=== PATIENT | male | born 1985 | race Caucasian/White ===

== ENCOUNTER 2016-09-08 15:58 | Emergency (ER) | payer OTHER ==
--- NOTE | 2016-09-08 16:24 | ERPHSYRPT ---
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 denies loc. c/o rt inner lag pain. abrasion approx 15 cm to rt inner thigh area-bleeding controlled at present. approx 5cm abrasion to lt inner thigh-no bleeding noted. no other injuries Physician History: The patient is a 30-year-old male with his complaining that he fell off a ladder while cutting a branch off a tree today. The branch knocked the ladder out from under him. He has a long abrasion and bruise on his right inner thigh and has a small abrasion and bruise on his left inner thigh. He did not lose consciousness. He did not hit his head. He has no other complaints. His last tetanus vaccination was 15 years ago. He takes no medicines. Occurred: just prior to arrival Reason for Fall: lost balance, fell from height (20 ft) Injuries/Pain Location: lower extremity Loss of Consciousness: no loss of consciousness Quality: throbbing Severity of Pain-Max: moderate Severity of Pain-Current: moderate Modifying Factors: Improves With: nothing Associated Symptoms (Fall): denies symptoms Allergies/Adverse Reactions: No Known Drug Allergies Allergy (Verified 09/08/16 16:09) Home Medications: No Home Meds [facility] UD 09/08/16 [History] Hx Tetanus, Diphtheria Vaccination/Date Given: No Hx Influenza Vaccination/Date Given: No Hx Pneumococcal Vaccination/Date Given: No Immunizations Up to Date: No - Review of Systems Constitutional: No Fever, No Chills Eyes: No Symptoms Ears, Nose, & Throat: No Symptoms Respiratory: No Cough, No Dyspnea Cardiac: No Chest Pain, No Edema, No Syncope Abdominal/Gastrointestinal: No Abdominal Pain, No Nausea, No Vomiting, No Diarrhea Genitourinary Symptoms: No Dysuria Musculoskeletal: Fall, Injury Skin: No Rash Neurological: No Dizziness, No Focal Weakness, No Sensory Changes Psychological: No Symptoms Endocrine: No Symptoms Hematologic/Lymphatic: No Symptoms Immunological/Allergic: No Symptoms All Other Systems: Reviewed and Negative - Past Medical History Pertinent Past Medical History: Yes Neurological History: No Pertinent History ENT History: Other ( sinus infections) Cardiac History: No Pertinent History Respiratory History: No Pertinent History, Tuberculosis Endocrine Medical History: No Pertinent History Musculoskeletal History: No Pertinent History GI Medical History: No Pertinent History History: No Pertinent History Psycho-Social History: Other Male Reproductive Disorders: No Pertinent History Other Medical History: hep c - Past Surgical History Past Surgical History: No Neuro Surgical History: No Pertinent History Cardiac: No Pertinent History Respiratory: No Pertinent History Gastrointestinal: No Pertinent History Genitourinary: No Pertinent History Musculoskeletal: No Pertinent History Male Surgical History: No Pertinent History - Social History Smoking Status: Current every day smoker How long have you smoked: 10 Exposure to second hand smoke: Yes Drug Use: none Patient Lives Alone: No Significant Family History: no pertinent family hx - Nursing Vital Signs Nursing Vital Signs: Initial Vital Signs Temperature 98.1 F Temperature Source Oral Pulse Rate 97 Respiratory Rate 18 Blood Pressure [Right Arm] 131/83 Pain Intensity 8 - Christine Coma Score Best Eye Response (Christine): (4) open spontaneously Best Verbal Response (Christine): (5) oriented Best Motor Response (Christine): (6) obeys commands [place] Total: 15 - Physical Exam General Appearance: mild distress Head Injury: no evidence of injury Eye Exam: PERRL/EOMI ENT Exam: airway nml Neck Exam: normal inspection, No tenderness Respiratory/Chest Exam: normal breath sounds, No chest tenderness, No respiratory distress Cardiovascular Exam: normal heart sounds, regular rate/rhythm Gastrointestinal Exam: soft, No tenderness, No distention, No guarding, No ecchymosis Rectal Exam: not done Back Exam: normal inspection, No vertebral tenderness Extremity Exam: other (abrasions bilateral thighs.) Neurologic Exam: alert, oriented x 3, cooperative, sensation nml, No motor deficits Skin Exam: abrasion (15 cm abrasion and bruise to right inner thigh, 3 cm abrasion and bruise to left inner thigh.), ecchymosis SpO2: 95 Oxygen Delivery: Room Air - Progress Progress: unchanged Counseled pt/family regarding: diagnosis - Departure Time of Disposition: 16:29 Departure Disposition: Home Clinical Impression: Multiple contusions Condition: Stable Critical Care Time: No Additional Instructions: Tylenol and Napoxen as needed. Ice as needed. Prescriptions: Naproxen 500 mg PO BID PRN #30 tablet
[2016-09-08] MEDS ORDERED: Adacel Vial IM ONE ×2 (16:31→16:36)
[2016-09-08] MEDS ORDERED: TORAdol 30 mg Injection IM ONE (16:31)
[2016-09-08] MEDS ORDERED: TORAdol 30 mg Injection ONE (16:36)
[2016-09-08 17:10] VITALS: BP 127/70; PULSE 78; O2SAT 100
== END 2016-09-08 17:00 | disposition home or self-care (01) ==
LOC: ED 15:58
DX: S70.12XA Contusion of left thigh, initial encounter (principal); S70.11XA Contusion of right thigh, initial encounter; S70.312A Abrasion, left thigh, initial encounter; S70.311A Abrasion, right thigh, initial encounter; W11.XXXA Fall on and from ladder, initial encounter
CPT/HCPCS: 90471; 90715; 96372; 99283; 99284; J1885

== ENCOUNTER 2017-04-20 17:29 | Emergency (ER) | payer OTHER ==
[2017-04-20] MEDS ORDERED: TORAdol 30 mg Injection IM ONE (18:30)
--- NOTE | 2017-04-20 18:34 | ERPHSYRPT ---
- History of Present Illness Time Seen by Provider: 04/20/17 18:29 Source: patient, family Exam Limitations: no limitations Patient Subjective Stated Complaint: pt was working on truck and fell off side of truck, and co pain to left shoulder Triage Nursing Assessment: no swelling to or bruising to left shoulder, pt guarding shoulder, radial pulce strong, moves fingers well Physician History: The patient is a 31-year-old right-handed male with his complaining that he fell off the side of his pickup truck today onto his left shoulder. He now has pain in his left shoulder and clavicle. It is hard for him to move his left arm out straight from his body. He did not take any Tylenol or ibuprofen. PMH of hepC. Occurred: just prior to arrival Reason for Fall: lost balance, fell from height (4 feet) Injuries/Pain Location: upper extremity (left shoulder) Loss of Consciousness: no loss of consciousness Quality: sharpness Severity of Pain-Max: moderate Severity of Pain-Current: moderate Modifying Factors: Improves With: nothing Associated Symptoms (Fall): denies symptoms Allergies/Adverse Reactions: No Known Drug Allergies Allergy (Verified 04/20/17 17:55) Home Medications: Omeprazole Magnesium [Prilosec Otc] 20 mg DAILY 04/20/17 [History] Hx Tetanus, Diphtheria Vaccination/Date Given: No Hx Influenza Vaccination/Date Given: No Hx Pneumococcal Vaccination/Date Given: No Immunizations Up to Date: Yes - Review of Systems Constitutional: No Fever, No Chills Eyes: No Symptoms Ears, Nose, & Throat: No Symptoms Respiratory: No Cough, No Dyspnea Cardiac: No Chest Pain, No Edema, No Syncope Abdominal/Gastrointestinal: No Abdominal Pain, No Nausea, No Vomiting, No Diarrhea Genitourinary Symptoms: No Dysuria Musculoskeletal: Fall, Injury Skin: No Rash Neurological: No Dizziness, No Focal Weakness, No Sensory Changes Psychological: No Symptoms Endocrine: No Symptoms Hematologic/Lymphatic: No Symptoms Immunological/Allergic: No Symptoms All Other Systems: Reviewed and Negative - Past Medical History Pertinent Past Medical History: Yes Neurological History: No Pertinent History ENT History: Other Cardiac History: No Pertinent History Respiratory History: No Pertinent History Endocrine Medical History: No Pertinent History Musculoskeletal History: No Pertinent History GI Medical History: No Pertinent History History: No Pertinent History Psycho-Social History: Other Male Reproductive Disorders: No Pertinent History Other Medical History: hep c - Past Surgical History Past Surgical History: Yes Neuro Surgical History: No Pertinent History Cardiac: No Pertinent History Respiratory: No Pertinent History Gastrointestinal: No Pertinent History Genitourinary: No Pertinent History Musculoskeletal: No Pertinent History Male Surgical History: No Pertinent History Other Surgical History: right arm - Social History Smoking Status: Current some day smoker How long have you smoked: 10 Exposure to second hand smoke: Yes Drug Use: none Patient Lives Alone: No Significant Family History: no pertinent family hx - Nursing Vital Signs Nursing Vital Signs: Initial Vital Signs Temperature 98.2 F 04/20/17 17:47 Pulse Rate 86 04/20/17 17:47 Respiratory Rate 18 04/20/17 17:47 Blood Pressure 125/87 04/20/17 17:47 O2 Sat by Pulse Oximetry 98 04/20/17 17:47 Pain Scale Pain Intensity 2 - [place] Coma Score Best Eye Response ([place]): (4) open spontaneously Best Verbal Response (Christine): (5) oriented Best Motor Response ([place]): (6) obeys commands [place] Total: 15 - Physical Exam General Appearance: mild distress Head Injury: no evidence of injury Eye Exam: PERRL/EOMI ENT Exam: airway nml Neck Exam: normal inspection, No tenderness Respiratory/Chest Exam: normal breath sounds, No chest tenderness, No respiratory distress Cardiovascular Exam: normal heart sounds, regular rate/rhythm Gastrointestinal Exam: soft, No tenderness, No distention, No guarding, No ecchymosis Rectal Exam: not done Back Exam: normal inspection, No vertebral tenderness Extremity Exam: limited range of motion (left shoulder), tenderness (left medial clavicle) Neurologic Exam: alert, oriented x 3, cooperative, sensation nml, No motor deficits Skin Exam: normal color, warm, dry SpO2 Interpretation: normal SpO2: 98 Oxygen Delivery: Room Air - Radiology Exams Left Clavicle X-ray Interpretation: Interpreted by me, No Fracture, Other Left Shoulder X-ray Interpretation: Interpreted by me, No Fracture Ordered Tests: Active Orders 24 hr Category Date Time Status CLAVICLE Stat Exams 04/20/17 18:29 Taken SHOULDER Stat Exams 04/20/17 18:29 Taken Medication Summary Discontinued Medications Generic Name Dose Route Start Last Admin Trade Name Freq PRN Reason Stop Dose Admin Ketorolac Tromethamine 60 mg 04/20/17 18:30 04/20/17 18:36 Toradol 30 Mg Injection IM 04/20/17 18:31 60 mg STAT ONE Administration Ketorolac Tromethamine Confirm 04/20/17 18:35 Toradol 30 Mg Injection Administered 04/20/17 18:36 Dose 60 mg .ROUTE .STK-MED ONE - Progress Progress: improved Counseled pt/family regarding: diagnosis, need for follow-up, rad results - Departure Time of Disposition: 19:31 Departure Disposition: Home Clinical Impression: Left shoulder pain Condition: Stable Critical Care Time: No Referrals: NAKUL MCCORMICK [Primary Care Provider] - Additional Instructions: You have a left shoulder injury without fracture. Wear the sling as needed for comfort. Take ibuprofen and apply ice as needed. You have been put on work restrictions for the next 2 days. Follow-up with your local doctor in one to 2 days.
[2017-04-20] MEDS ORDERED: TORAdol 30 mg Injection ONE (18:35)
[2017-04-20 19:31] VITALS: BP 126/63; PULSE 70; O2SAT 98
--- NOTE | 2017-04-21 08:32 | XRAY ---
Indication: Pain following fall. Comparison: None 2 views of the left clavicle obtained. No bony, articular, or soft tissue abnormalities.
--- NOTE | 2017-04-21 08:33 | XRAY ---
Indication: Pain following fall. Comparison: None 3 views of the left shoulder obtained. No bony, articular, or soft tissue abnormalities.
== END 2017-04-20 19:42 | disposition home or self-care (01) ==
LOC: ED 17:29
DX: M25.512 Pain in left shoulder (principal); W17.89XA Other fall from one level to another, initial encounter
CPT/HCPCS: 73000; 73030; 96372; 99283; 99284; J1885

== ENCOUNTER 2017-12-25 11:36 | Emergency (ER) | payer OTHER ==
[2017-12-25] MEDS ORDERED: Zofran 4 MG/2 ML VIAL IV ONE (11:53)
[2017-12-25] MEDS ORDERED: CEFAZOLIN 2 GM-D5W BAG** 2 GM/50 ML ML IV STA (11:53)
[2017-12-25] MEDS ORDERED: MORPHINE SULFATE 4 MG INJ IV ONE ×2 (11:53→13:38)
[2017-12-25] MEDS ORDERED: Adacel Vial IM ONE ×2 (11:53→11:57)
[2017-12-25] MEDS ORDERED: Sodium Chloride 0.9% 1000 ML 1,000 ML IV STA (11:54)
[2017-12-25] MEDS ORDERED: Sodium Chloride 0.9% 1000 ML 1,000 ML ONE (11:57)
[2017-12-25] MEDS ORDERED: MORPHINE SULFATE 4 MG INJ ONE ×2 (11:57→13:41)
[2017-12-25] MEDS ORDERED: Zofran 4 MG/2 ML VIAL ONE (11:57)
[2017-12-25] MEDS ORDERED: ROCEPHIN 2 Gm-D5w 50ML BAG** 2 G/50 ML IVPB IV ONE (12:02)
[2017-12-25] MEDS ORDERED: KEFZOL 1 GM ONE (12:04)
--- NOTE | 2017-12-25 12:05 | ERPHSYRPT ---
- History of Present Illness Time Seen by Provider: 12/25/17 11:43 Source: patient Exam Limitations: no limitations Patient Subjective Stated Complaint: pt reports he was working with a saw at work when he got his middle finger of left hand Triage Nursing Assessment: pt diaphoretic pale upon arrival to ed-evolsion of left middle finger noted with bleeding controlled with pressure Physician History: 32 y/o male comes to the ER after cutting part of his left middle finger with a saw at work. Pt admits to having severe pain at the site. Pt describes the pain as sharp, constant, 10/10 and pt has not taken any pain meds. Bleeding is well controlled with pressure. Pt is not up to date with his tetanus. Pt also admits to feeling dizzy and having nausea. Occurred: just prior to arrival Method of Injury: incised Quality: constant Severity of Pain-Max: severe Severity of Pain-Current: severe Extremities Pain Location: 3rd finger: left Modifying Factors: Improves With: nothing Associated Symptoms: sweating Allergies/Adverse Reactions: No Known Drug Allergies Allergy (Verified 12/25/17 11:43) Home Medications: No Reportable Medications [No Reported Medications] 12/25/17 [History] Hx Tetanus, Diphtheria Vaccination/Date Given: No Hx Influenza Vaccination/Date Given: No Hx Pneumococcal Vaccination/Date Given: No Immunizations Up to Date: Yes - Review of Systems Constitutional: No Fever, No Chills Eyes: No Symptoms Ears, Nose, & Throat: No Symptoms Respiratory: No Cough, No Dyspnea Cardiac: No Chest Pain, No Edema, No Syncope Abdominal/Gastrointestinal: No Abdominal Pain, No Nausea, No Vomiting, No Diarrhea Genitourinary Symptoms: No Dysuria Musculoskeletal: Joint Pain, Myalgias, No Back Pain, No Neck Pain Skin: Other (amputation), No Rash Neurological: No Dizziness, No Focal Weakness, No Sensory Changes Psychological: No Symptoms Endocrine: No Symptoms All Other Systems: Reviewed and Negative - Past Medical History Pertinent Past Medical History: Yes Neurological History: No Pertinent History ENT History: Other Cardiac History: No Pertinent History Respiratory History: No Pertinent History Endocrine Medical History: No Pertinent History Musculoskeletal History: No Pertinent History GI Medical History: No Pertinent History History: No Pertinent History Psycho-Social History: Other Male Reproductive Disorders: No Pertinent History Other Medical History: hep c - Past Surgical History Past Surgical History: Yes Neuro Surgical History: No Pertinent History Cardiac: No Pertinent History Respiratory: No Pertinent History Gastrointestinal: No Pertinent History Genitourinary: No Pertinent History Musculoskeletal: No Pertinent History Male Surgical History: No Pertinent History Other Surgical History: right arm - Social History Smoking Status: Current some day smoker How long have you smoked: 10 Exposure to second hand smoke: Yes Drug Use: none Patient Lives Alone: No Significant Family History: no pertinent family hx - Nursing Vital Signs Nursing Vital Signs: Initial Vital Signs Pulse Rate 74 12/25/17 12:00 Respiratory Rate 18 12/25/17 12:00 Blood Pressure 134/67 12/25/17 12:00 O2 Sat by Pulse Oximetry 97 12/25/17 12:00 Pain Scale Pain Intensity 8 - Physical Exam General Appearance: alert Eyes, Ears, Nose, Throat Exam: moist mucous membranes Neck Exam: non-tender, supple Cardiovascular/Respiratory Exam: chest non-tender, normal breath sounds, regular rate/rhythm, no respiratory distress Abdominal Exam: non-tender, No guarding Back Exam: normal inspection, No vertebral tenderness Shoulder Exam: normal inspection, non-tender Elbow/Forearm Exam: normal inspection, non-tender Wrist Exam: normal inspection, non-tender Hand Exam: bone tenderness, soft tissue tenderness, swelling (avulsion amputation of left 3rd finger, blood oozing from stump) Neuro/Tendon Exam: normal sensation, normal motor functions Mental Status Exam: alert, oriented x 3, cooperative Skin Exam: normal color, warm, dry - Course Nursing assessment & vital signs reviewed: Yes Ordered Tests: Active Orders 24 hr Category Date Time Status IV Insertion STAT Care 12/25/17 11:52 Active Wound Care STAT Care 12/25/17 12:32 Active HAND (MINIMUM 3 VIEWS) Stat Exams 12/25/17 12:04 Completed Medication Summary Discontinued Medications Generic Name Dose Route Start Last Admin Trade Name Freq PRN Reason Stop Dose Admin Cefazolin Sodium Confirm 12/25/17 12:04 Kefzol 1 Gm Administered 12/25/17 12:05 Dose 1 g .ROUTE .STK-MED ONE Diphtheria/Tetanus/Acell Pertussis 0.5 ml 12/25/17 11:53 12/25/17 12:03 Adacel Vial IM 12/25/17 11:54 0.5 ml .ONCE ONE Administration Diphtheria/Tetanus/Acell Pertussis Confirm 12/25/17 11:57 Adacel Vial Administered 12/25/17 11:58 Dose 0.5 ml IM .STK-MED ONE Cefazolin Sodium/Dextrose 2 gm in 50 mls @ 100 mls/hr 12/25/17 11:53 12:09 Cefazolin 2 Gm-D5w Bag IV 12/25/17 12:22 2 gm/hr STAT STA 50 mls/hr Administration Sodium Chloride 1,000 mls @ 999 mls/hr 12/25/17 11:54 12/25/17 12:04 Sodium Chloride 0.9% 1000 Ml IV 12/25/17 12:54 999 mls/hr .Q1H1M STA Administration Sodium Chloride Confirm 12/25/17 11:57 Sodium Chloride 0.9% 1000 Ml Administered 12/25/17 11:58 Dose 1,000 mls @ ud .ROUTE .STK-MED ONE Ceftriaxone Sodium/Dextrose Confirm 12/25/17 12:02 Rocephin 2 Gm-D5w 50ml Bag Administered 12/25/17 12:03 Dose 2 g in 50 mls @ ud IV .STK-MED ONE Morphine Sulfate 4 mg 12/25/17 11:53 12/25/17 12:02 Morphine Sulfate 4 Mg Inj IV 12/25/17 11:54 4 mg STAT ONE Administration Morphine Sulfate Confirm 12/25/17 11:57 Morphine Sulfate 4 Mg Inj Administered 12/25/17 11:58 Dose 4 mg .ROUTE .STK-MED ONE Ondansetron HCl 4 mg 12/25/17 11:53 12/25/17 12:03 Zofran 4 Mg/2 Ml Vial IV 12/25/17 11:54 4 mg STAT ONE Administration Ondansetron HCl Confirm 12/25/17 11:57 Zofran 4 Mg/2 Ml Vial Administered 12/25/17 11:58 Dose 4 mg .ROUTE .STK-MED ONE - Progress Progress: improved Progress Note: 12/25/17 12:24 The patient's boss brought part of the finger back and it was placed in saline and ice. The finger x ray shows the avulsion and amputation of the 3rd left finger and a comminuted fracture of distal phalanx. Pt has received morphine, zofran, boostrix, ancef and NS fluids. Pt has been accepted by Dr Francis, hand surgeon at [facility]. 12/25/17 12:26 12/25/17 12:56 - Departure Time of Disposition: 12:57 Departure Disposition: Transfer Clinical Impression: Amputation finger Qualifiers: Encounter type: initial encounter Qualified Code(s): S68.119A - Complete traumatic metacarpophalangeal amputation of unspecified finger, initial encounter Phalanx, proximal fracture of finger Qualifiers: Encounter type: initial encounter Finger: middle finger Fracture type: closed Fracture alignment: nondisplaced Laterality: left Qualified Code(s): S62.643A - Nondisplaced fracture of proximal phalanx of left middle finger, initial encounter for closed fracture Condition: Fair Critical Care Time: Yes Critical Care Time(excluding separately billable procedures): 30-74 minutes Referrals: NAKUL MCCORMICK [Primary Care Provider] -
--- NOTE | 2017-12-25 12:13 | XRAY ---
Indication: Middle finger saw injury. Comparison: None 3 views of the left hand demonstrates distal 3rd finger soft tissue maceration/amputation with underlying nondisplaced comminuted fractures of the distal phalanx and lesser degree distal middle phalanx laterally. No other bony, articular, or soft tissue abnormalities.
[2017-12-25 12:31] VITALS: BP 122/81; PULSE 88; O2SAT 98
== END 2017-12-25 14:00 | disposition short-term general hospital (02) ==
LOC: ED 11:36
DX: S68.113A Complete traumatic metacarpophalangeal amputation of left middle finger, initial encounter (principal); S62.613A Displaced fracture of proximal phalanx of left middle finger, initial encounter for closed fracture; W29.8XXA Contact with other powered hand tools and household machinery, initial encounter; Y92.9 Unspecified place or not applicable; Y99.0 Civilian activity done for income or pay
CPT/HCPCS: 36000; 73130; 90471; 90715; 96360; 96365; 96374; 96375; 96376; 99285; J0690; J0696; J2270; J2405

== ENCOUNTER 2020-05-22 22:30 | Emergency (ER) | payer BC ==
[2020-05-22] MEDS ORDERED: Norflex 60 MG/2 ML IM ONE (22:55)
[2020-05-22] MEDS ORDERED: TORAdol 30 mg Injection IM ONE (22:55)
--- NOTE | 2020-05-22 23:03 | ERPHSYRPT ---
- History of Present Illness Source: patient Exam Limitations: no limitations Patient Subjective Stated Complaint: pt states "I pulled something in my lower back moving furniture." Triage Nursing Assessment: pt ambulated into the er; pt is axo x4; c/o lower back pain; states 8/10 lower back pain; no deformity to back; tenderness with palpation to lower back; pt grabbing and holding back; clear lung sounds in all lobes; vitals wnl Physician History: 34-year-old fairly healthy male presents with low back pain. Patient was lifting something this morning when he heard a pop and then sharp pain ensued. No history of back issues in the past. Worse with movement. Denies any radiculopathy. Denies any saddle anesthesia or bladder or bowel incontinence. Denies any symptoms of genitourinary issues. Denies fever. Timing/Duration: today Method of Injury: lifting Quality: sharp Back Pain Location: lumbar spine, paraspinous muscles Severity of Pain-Max: severe Severity of Pain-Current: moderate Modifying Factors: Improves With: movement Associated Symptoms: lower back pain, muscle spasms, No urinary incontinence, No loss of bowel control, No constipation, No nausea, No vomiting, No sensory/motor loss, No tingling in legs/feet Previous symptoms: no prior history Allergies/Adverse Reactions: tramadol Allergy (Verified 05/22/20 22:39) Itching Hx Tetanus, Diphtheria Vaccination/Date Given: No Hx Influenza Vaccination/Date Given: No Hx Pneumococcal Vaccination/Date Given: No Travel Risk - International Travel Have you traveled outside of the country in past 3 weeks: No - Coronavirus Screening Are you exhibiting any of the following symptoms?: No Close contact with a COVID-19 positive Pt in past 14-21 Days: No - Review of Systems Constitutional: No Fever, No Chills Eyes: No Symptoms Ears, Nose, & Throat: No Symptoms Respiratory: No Cough, No Dyspnea Cardiac: No Chest Pain, No Edema, No Syncope Abdominal/Gastrointestinal: No Abdominal Pain, No Nausea, No Vomiting, No Diarrhea Genitourinary Symptoms: No Dysuria Musculoskeletal: Back Pain, Injury, No Neck Pain Skin: No Rash Neurological: No Dizziness, No Focal Weakness, No Sensory Changes Psychological: No Symptoms Endocrine: No Symptoms All Other Systems: Reviewed and Negative - Past Medical History Pertinent Past Medical History: Yes Neurological History: No Pertinent History ENT History: Other Cardiac History: No Pertinent History Respiratory History: No Pertinent History Endocrine Medical History: No Pertinent History Musculoskeletal History: No Pertinent History GI Medical History: No Pertinent History History: No Pertinent History Psycho-Social History: Other Male Reproductive Disorders: No Pertinent History Other Medical History: hep c - Past Surgical History Past Surgical History: Yes Neuro Surgical History: No Pertinent History Cardiac: No Pertinent History Respiratory: No Pertinent History Gastrointestinal: No Pertinent History Genitourinary: No Pertinent History Musculoskeletal: No Pertinent History Male Surgical History: No Pertinent History Other Surgical History: right arm - Social History Smoking Status: Current some day smoker How long have you smoked: 10 Exposure to second hand smoke: Yes Drug Use: none Patient Lives Alone: No Significant Family History: no pertinent family hx - Nursing Vital Signs Nursing Vital Signs: Initial Vital Signs Temperature 98.2 F 05/22/20 22:40 Pulse Rate 80 05/22/20 22:40 Respiratory Rate 22 05/22/20 22:40 Blood Pressure 133/79 05/22/20 22:40 O2 Sat by Pulse Oximetry 97 05/22/20 22:40 Pain Scale Pain Intensity [Lower Back] 8 Pain Intensity 4 - Physical Exam General Appearance: no apparent distress, alert Eye Exam: PERRL/EOMI, eyes nml inspection Neck Exam: normal inspection, non-tender, supple, full range of motion, No meningismus, No midline tenderness Respiratory Exam: normal breath sounds, lungs clear, No respiratory distress Cardiovascular Exam: regular rate/rhythm, normal heart sounds Gastrointestinal Exam: soft, No tenderness, No mass Back Exam: decreased range of motion, muscle spasm, point tenderness (right paraspinal lumbar.), No vertebral tenderness Extremity Exam: normal inspection, normal range of motion, No calf tenderness, No parasthesia, No paralysis, No pedal edema Neurologic Exam: alert, oriented x 3, cooperative, 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, normal mood/affect, nml station & gait, sensation nml, No motor deficits Skin Exam: normal color, warm, dry, No rash SpO2 Interpretation: normal SpO2: 97 - Course Nursing assessment & vital signs reviewed: Yes - Radiology Exams L-Spine X-ray Interpretation: Reviewed by me, Negative Ordered Tests: Active Orders 24 hr Category Date Time Status LUMBAR LIMITED (2 OR 3 VIEWS) Stat Exams 05/22/20 Ordered Medication Summary Discontinued Medications Generic Name Dose Route Start Last Admin Trade Name Cinthia PRN Reason Stop Dose Admin Ketorolac Tromethamine 60 mg 05/22/20 22:55 05/22/20 23:07 Toradol 30 Mg Injection IM 05/22/20 22:56 60 mg STAT ONE Administration Ketorolac Tromethamine Confirm 05/22/20 23:06 Toradol 30 Mg Injection Administered 05/22/20 23:07 Dose 60 mg .ROUTE .STK-MED ONE Orphenadrine Citrate 60 mg 05/22/20 22:55 05/22/20 23:07 Norflex 60 Mg/2 Ml IM 05/22/20 22:56 60 mg STAT ONE Administration Orphenadrine Citrate Confirm 05/22/20 23:06 Norflex 60 Mg/2 Ml Administered 05/22/20 23:07 Dose 60 mg .ROUTE .STK-MED ONE - Progress Progress: improved Progress Note: 05/23/20 00:36 We will get L-spine given injury. IM Toradol and Norflex. L-spine appears to be within normal limits. There is some loss of lordosis secondary to muscle spasms most likely. We will provide work note for tonight. Prescription of Flexeril. Counseled pt/family regarding: diagnosis, need for follow-up, rad results - Departure Departure Disposition: Home Clinical Impression: Lumbar strain Condition: Stable Critical Care Time: No Referrals: NAKUL MCCORMICK [Primary Care Provider] - Instructions: Low Back Pain (DC) Additional Instructions: Symptoms closely. Rest. Heat or ice to area. Motrin or Tylenol for pain. Prescription of muscle relaxers given. Follow-up with your PCP for recheck. Return to ED if worse. Forms: Work/School Release Form Prescriptions: Cyclobenzaprine HCl 10 mg [Flexeril 10 MG] 10 mg PO TID #12 tablet
[2020-05-22] MEDS ORDERED: TORAdol 30 mg Injection ONE (23:06)
[2020-05-22] MEDS ORDERED: Norflex 60 MG/2 ML ONE (23:06)
[2020-05-23 00:42] VITALS: BP 112/66; PULSE 60; O2SAT 98
--- NOTE | 2020-05-23 09:03 | XRAY ---
Indication: Pain following lifting injury. Comparison: None 3 view lumbar spine demonstrates 5 lumbar vertebral segments in normal alignment with vertebral body heights/disc spaces maintained. No bony, articular, or soft tissue abnormalities.
== END 2020-05-23 00:45 | disposition home or self-care (01) ==
LOC: ED 22:30
DX: S39.012A Strain of muscle, fascia and tendon of lower back, initial encounter (principal); M62.830 Muscle spasm of back; X50.0XXA Overexertion from strenuous movement or load, initial encounter
CPT/HCPCS: 72100; 96372; 99284; J1885; J2360

== ENCOUNTER 2020-10-10 18:50 | Emergency (ER) | payer BC ==
--- NOTE | 2020-10-10 20:00 | ERPHSYRPT ---
- History of Present Illness Source: patient Exam Limitations: no limitations Patient Subjective Stated Complaint: fall, lower back pain Triage Nursing Assessment: pt to ED c/o mechanical fall and lower back pain. pt states he slipped going down wet stairs. noted redness to lower back, tender to palp. rates 9/10. ambulates with no assistance with steady gate Physician History: 34 yo wm slipped on step at home due to rain hitting his lumbar area on step. Pt states pain 9/10 and worse w movement. He denies LOC/C-Tspine pain/COHEN/Hip pain. Occurred: just prior to arrival Reason for Fall: slipped Injuries/Pain Location: back Loss of Consciousness: no loss of consciousness Quality: aching Severity of Pain-Max: severe Severity of Pain-Current: severe Modifying Factors: Improves With: movement Associated Symptoms (Fall): denies symptoms, back pain, No abdominal pain, No confusion, No chest pain, No dizziness, No extremity injury, No headache, No lightheadedness, No muscle spasms, No nausea, No neck pain, No ringing in ears, No seizures, No shortness of breath, No slurred speech, No trouble walking Allergies/Adverse Reactions: tramadol Allergy (Mild, Verified 10/10/20 19:02) Itching Hx Tetanus, Diphtheria Vaccination/Date Given: No Hx Influenza Vaccination/Date Given: No Hx Pneumococcal Vaccination/Date Given: No Immunizations Up to Date: No Travel Risk - International Travel Have you traveled outside of the country in past 3 weeks: No - Coronavirus Screening Are you exhibiting any of the following symptoms?: No Close contact with a COVID-19 positive Pt in past 14-21 Days: No - Vaccine Status Have you recieved a Covid-19 vaccination: No - Review of Systems Constitutional: No Symptoms Eyes: No Symptoms Ears, Nose, & Throat: No Symptoms Respiratory: No Symptoms Cardiac: No Symptoms Abdominal/Gastrointestinal: No Symptoms Genitourinary Symptoms: No Symptoms Skin: No Symptoms Neurological: No Symptoms Psychological: No Symptoms Endocrine: No Symptoms Hematologic/Lymphatic: No Symptoms Immunological/Allergic: No Symptoms - Past Medical History Pertinent Past Medical History: Yes Neurological History: No Pertinent History ENT History: Other Cardiac History: No Pertinent History Respiratory History: No Pertinent History Endocrine Medical History: No Pertinent History Musculoskeletal History: No Pertinent History GI Medical History: No Pertinent History History: No Pertinent History Psycho-Social History: Other Male Reproductive Disorders: No Pertinent History Other Medical History: hep c - Past Surgical History Past Surgical History: Yes Neuro Surgical History: No Pertinent History Cardiac: No Pertinent History Respiratory: No Pertinent History Gastrointestinal: No Pertinent History Genitourinary: No Pertinent History Musculoskeletal: No Pertinent History Male Surgical History: No Pertinent History Other Surgical History: right arm - Social History Smoking Status: Current some day smoker How long have you smoked: 10 Exposure to second hand smoke: Yes Drug Use: none Patient Lives Alone: No Significant Family History: no pertinent family hx - Nursing Vital Signs Nursing Vital Signs: Initial Vital Signs Temperature 99.1 F 10/10/20 18:56 Pain Scale Pain Intensity 2 - [place] Coma Score Best Eye Response ([place]): (4) open spontaneously Best Verbal Response ([place]ine): (5) oriented Best Motor Response ([place]): (6) obeys commands Christine Total: 15 - Physical Exam General Appearance: no apparent distress Head Injury: no evidence of injury Eye Exam: PERRL/EOMI, eyes nml inspection ENT Exam: airway nml, No evidence of ENT injury, No clear fluid (ears), No clear fluid (nose) Neck Exam: supple, trachea midline (C-spine nttp) Respiratory/Chest Exam: normal breath sounds, No chest tenderness, No respiratory distress Cardiovascular Exam: normal heart sounds, regular rate/rhythm, normal peripheral pulses, No murmur Gastrointestinal Exam: soft, normal bowel sounds, No tenderness Back Exam: vertebral tenderness (L-spine ttp) Extremity Exam: pelvis stable Neurologic Exam: alert, oriented x 3, cooperative, 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, normal mood/affect, nml cerebellar function, nml station & gait, sensation nml, No motor deficits, No sensory deficit Skin Exam: normal color, warm, dry - Course Nursing assessment & vital signs reviewed: Yes - CT Exams Other CT Interpretation: Discussed w/radiologist (Ct L-spine neg per Rad) Ordered Tests: Active Orders 24 hr Category Date Time Status LUMBAR SPINE W/O [CT] Stat Exams 10/10/20 19:51 Taken Medication Summary Discontinued Medications Generic Name Dose Route Start Last Admin Trade Name Freq PRN Reason Stop Dose Admin Ketorolac Tromethamine 60 mg 10/10/20 20:21 10/10/20 20:27 Toradol 30 Mg Injection IM 10/10/20 20:22 60 mg STAT ONE Administration Ketorolac Tromethamine Confirm 10/10/20 20:25 Toradol 30 Mg Injection Administered 10/10/20 20:26 Dose 60 mg .ROUTE .STK-MED ONE - Progress Progress Note: 10/10/20 20:21 60mg IM Toradol Counseled pt/family regarding: need for follow-up, rad results - Departure Departure Disposition: Home Clinical Impression: Lumbar contusion Condition: Stable Critical Care Time: No Referrals: DIAMOND URIARTE [Primary Care Provider] - Instructions: Low Back Pain (DC), Contusion (DC) Additional Instructions: Ice for 12-24 hours Toradol as needed for pain Follow up with your family MD for continued pain Return to ER as needed Forms: Work/School Release Form Prescriptions: Ketorolac Tromethamine [Toradol] 10 mg PO TID PRN #10 tablet PRN Reason: Pain
[2020-10-10] MEDS ORDERED: TORAdol 30 mg Injection IM ONE (20:21)
[2020-10-10] MEDS ORDERED: TORAdol 30 mg Injection ONE (20:25)
[2020-10-10 20:48] VITALS: PULSE 88; O2SAT 98
--- NOTE | 2020-10-11 08:44 | XRAY ---
Indication: Low back pain following fall. Multiple contiguous axial images obtained through the lumbar spine. Sagittal and coronal reformatted images obtained. Comparison: None. There is lumbar radiograph May 22, 2020. Axial images negative for acute fracture, suspicious bony lesions, or spinal canal stenosis. Facets are symmetric. Sagittal and coronal reformatted images demonstrates normal lumbar alignment with vertebral body heights/disc spaces maintained. No acute compression fracture or subluxation. Visualized noncontrasted soft tissues are unremarkable. Impression: Negative CT lumbar spine.
== END 2020-10-10 20:49 | disposition home or self-care (01) ==
LOC: ED 18:50
DX: S30.0XXA Contusion of lower back and pelvis, initial encounter (principal)
CPT/HCPCS: 72131; 96372; 99284; J1885

== ENCOUNTER 2020-10-11 18:41 | Emergency (ER) | payer BC ==
[2020-10-11 19:16] VITALS: O2SAT 97
[2020-10-11] MEDS ORDERED: Norflex 60 MG/2 ML IM ONE (19:33)
[2020-10-11] MEDS ORDERED: TORAdol 30 mg Injection IM ONE (19:33)
[2020-10-11] MEDS ORDERED: TORAdol 30 mg Injection ONE (19:35)
[2020-10-11] MEDS ORDERED: Norflex 60 MG/2 ML ONE (19:35)
--- NOTE | 2020-10-11 19:36 | ERPHSYRPT ---
- History of Present Illness Time Seen by Provider: 10/11/20 19:21 Source: patient Exam Limitations: no limitations Patient Subjective Stated Complaint: pt c/o low back pain, "requesting a couple more days off work". Triage Nursing Assessment: pt c/o low back pain. Pt was seen in Er last night for fall and same complaint. Pt was prescribed Toradol. Pt took one today at 1500 and ate with it, pt vomited x1. Pt states, "can I get a couple more days off work"? Pt denies trying tylenol, ibu, heat or ice for pain control. Pt states to me that he is here to get days off work. No redness or bruising noted. Physician History: 34 years old male presented in the ER with chief complaint of low back pain. Patient reports he slipped because of rain and missed a step, falling on his low back yesterday. He was evaluated in the ER Timing/Duration: yesterday, sudden, worse Method of Injury: fall, slipped Quality: sharp Back Pain Location: lumbar spine, paraspinous muscles Severity of Pain-Max: moderate Severity of Pain-Current: moderate Modifying Factors: Improves With: immobilization, pain medication, rest. Worsens With: movement Associated Symptoms: lower back pain, muscle spasms, No urinary incontinence, No loss of bowel control, No problems urinating, No light-headedness, No dizziness, No weakness, No sensory/motor loss, No tingling in legs/feet Allergies/Adverse Reactions: tramadol Allergy (Mild, Verified 10/11/20 19:24) Itching ketorolac [From Toradol] Adverse Reaction (Mild, Verified 10/11/20 19:24) Vomiting Hx Tetanus, Diphtheria Vaccination/Date Given: No Hx Influenza Vaccination/Date Given: No Hx Pneumococcal Vaccination/Date Given: No Immunizations Up to Date: No Travel Risk - International Travel Have you traveled outside of the country in past 3 weeks: No - Coronavirus Screening Are you exhibiting any of the following symptoms?: No Close contact with a COVID-19 positive Pt in past 14-21 Days: No - Vaccine Status Have you recieved a Covid-19 vaccination: No - Past Medical History Pertinent Past Medical History: Yes Neurological History: No Pertinent History ENT History: No Pertinent History, Other Cardiac History: No Pertinent History Respiratory History: No Pertinent History Endocrine Medical History: No Pertinent History Musculoskeletal History: No Pertinent History GI Medical History: No Pertinent History History: No Pertinent History Psycho-Social History: Other Male Reproductive Disorders: No Pertinent History Other Medical History: hep c - Past Surgical History Past Surgical History: Yes Neuro Surgical History: No Pertinent History Cardiac: No Pertinent History Respiratory: No Pertinent History Gastrointestinal: No Pertinent History Genitourinary: No Pertinent History Musculoskeletal: No Pertinent History Male Surgical History: No Pertinent History Other Surgical History: left middle finger, 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 - Social History Smoking Status: Current every day smoker How long have you smoked: 7 yrs Exposure to second hand smoke: Yes Drug Use: none Patient Lives Alone: No Significant Family History: no pertinent family hx - Nursing Vital Signs Nursing Vital Signs: Initial Vital Signs Temperature 98.2 F 10/11/20 19:14 Pulse Rate 66 10/11/20 19:14 Respiratory Rate 18 10/11/20 19:14 Blood Pressure 120/76 10/11/20 19:14 O2 Sat by Pulse Oximetry 97 10/11/20 19:14 Pain Scale Pain Intensity [Lower Back] 8 Pain Intensity 8 - Physical Exam SpO2: 97 Ordered Tests: Medication Summary Discontinued Medications Generic Name Dose Route Start Last Admin Trade Name Freq PRN Reason Stop Dose Admin Ketorolac Tromethamine 30 mg 10/11/20 19:33 10/11/20 19:54 Toradol 30 Mg Injection IM 10/11/20 19:34 Not Given STAT ONE Ketorolac Tromethamine Confirm 10/11/20 19:35 Toradol 30 Mg Injection Administered 10/11/20 19:36 Dose 30 mg .ROUTE .STK-MED ONE Orphenadrine Citrate 60 mg 10/11/20 19:33 10/11/20 19:53 Norflex 60 Mg/2 Ml IM 10/11/20 19:34 60 mg STAT ONE Administration Orphenadrine Citrate Confirm 10/11/20 19:35 Norflex 60 Mg/2 Ml Administered 10/11/20 19:36 Dose 60 mg .ROUTE .STK-MED ONE - Progress Progress: improved, pain not gone completely, re-examined Progress Note: 10/11/20 20:19 Patient has negative neuro exam in lower extremities. Negative straight leg raising test bilaterally. Pain is in the lower lumbar and bilateral sacroiliac area where patient fell and has contusion. I would start him on ibuprofen 600 in spite of Toradol which patient is not tolerating well as he is having nausea with it. I would also give him some muscle relaxant like Robaxin and have him follow-up outpatient. Recommended avoiding exertional activity and discussed signs symptoms of worsening needing return to ER which he seems understanding. I have reviewed CT done yesterday and it was normal, do not think he needs any other imaging and is stable for discharge. Counseled pt/family regarding: diagnosis, need for follow-up - Departure Departure Disposition: Home Clinical Impression: Lumbar contusion Qualifiers: Encounter type: subsequent encounter Qualified Code(s): S30.0XXD - Contusion of lower back and pelvis, subsequent encounter Condition: Stable Critical Care Time: No Referrals: DIAMOND URIARTE [Primary Care Provider] - (1-2 days for reevaluation) Instructions: Low Back Pain (DC) Additional Instructions: Take Tylenol along with ibuprofen as needed. Stop taking Toradol. Follow-up with primary care for reevaluation. Avoid exertional activity like heavy mechanical work/lifting pushing or pulling until evaluated by primary care. Return to ER for intractable pain, numbness tingling weakness of lower extremities/loss of bowel or bladder control. Prescriptions: Ibuprofen 600 mg PO Q6HPRN PRN 10 Days #20 tablet PRN Reason: Pain Methocarbamol [Robaxin-750] 750 mg PO TID 7 Days #21 tablet
[2020-10-11 20:26] VITALS: BP 133/77; PULSE 85
== END 2020-10-11 20:33 | disposition home or self-care (01) ==
LOC: ED 18:41
DX: S30.0XXA Contusion of lower back and pelvis, initial encounter (principal); W19.XXXA Unspecified fall, initial encounter; M54.5 Low back pain
CPT/HCPCS: 96372; 99284; J1885; J2360

== ENCOUNTER 2022-01-19 12:57 | Emergency (ER) | payer SELFPAY ==
[2022-01-19 13:04] VITALS: BP 111/87; PULSE 84; O2SAT 96
[2022-01-19] MEDS ORDERED: TYLENOL EXTRA STRENGTH 500 MG PO ONE (13:12)
[2022-01-19] MEDS ORDERED: Adacel Vial IM ONE ×2 (13:12→13:16)
[2022-01-19] MEDS ORDERED: Rocephin 1000 MG INJ IM ONE (13:13)
[2022-01-19] MEDS ORDERED: TYLENOL EXTRA STRENGTH 500 MG ONE (13:15)
[2022-01-19] MEDS ORDERED: Rocephin 1000 MG INJ ONE (13:16)
[2022-01-19] MEDS ORDERED: XYLOCAINE 1% HCL 20 ML MDV ONE (13:16)
--- NOTE | 2022-01-19 13:19 | ERPHSYRPT ---
- History of Present Illness Time Seen by Provider: 01/19/22 13:13 Source: patient Exam Limitations: no limitations Patient Subjective Stated Complaint: Pt states "I am not sure how I cut my finger." Triage Nursing Assessment: Pt presented alert and oriented X 3, skin pwd Pt ambulates with an upright steady gait, able to speak in clear full sentences. Pt brought in by pd stated need a med clearance, cut his finger. PT has laceration noted to right thumb. Physician History: Pt states "I am not sure how I cut my finger." PT has laceration noted to right thumb. Timing/Duration: today Severity: mild Associated Symptoms: denies symptoms Allergies/Adverse Reactions: tramadol Allergy (Mild, Verified 10/11/20 19:24) Itching ketorolac [From Toradol] Adverse Reaction (Mild, Verified 10/11/20 19:24) Vomiting Hx Tetanus, Diphtheria Vaccination/Date Given: No Hx Influenza Vaccination/Date Given: No Hx Pneumococcal Vaccination/Date Given: No Immunizations Up to Date: Yes Travel Risk - International Travel Have you traveled outside of the country in past 3 weeks: No - Coronavirus Screening Are you exhibiting any of the following symptoms?: No Close contact with a COVID-19 positive Pt in past 14-21 Days: No - Vaccine Status Have you recieved a Covid-19 vaccination: No - Review of Systems Constitutional: No Symptoms Eyes: No Symptoms Ears, Nose, & Throat: No Symptoms Respiratory: No Symptoms Cardiac: No Symptoms Abdominal/Gastrointestinal: No Symptoms Genitourinary Symptoms: No Symptoms Musculoskeletal: No Symptoms Skin: Other (contused skin on right thumb) - Past Medical History Pertinent Past Medical History: Yes Neurological History: No Pertinent History ENT History: No Pertinent History, Other Cardiac History: No Pertinent History Respiratory History: No Pertinent History Endocrine Medical History: No Pertinent History Musculoskeletal History: No Pertinent History GI Medical History: No Pertinent History History: No Pertinent History Psycho-Social History: Other Male Reproductive Disorders: No Pertinent History Other Medical History: hep c - Past Surgical History Past Surgical History: Yes Neuro Surgical History: No Pertinent History Cardiac: No Pertinent History Respiratory: No Pertinent History Gastrointestinal: No Pertinent History Genitourinary: No Pertinent History Musculoskeletal: No Pertinent History Male Surgical History: No Pertinent History Other Surgical History: left middle finger, 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 - Social History Smoking Status: Current every day smoker How long have you smoked: 7 yrs Exposure to second hand smoke: Yes Drug Use: none Patient Lives Alone: No Significant Family History: no pertinent family hx - Nursing Vital Signs Nursing Vital Signs: Initial Vital Signs Temperature 97.6 F 01/19/22 12:58 Pulse Rate 84 01/19/22 12:58 Respiratory Rate 20 01/19/22 12:58 Blood Pressure 111/87 01/19/22 12:58 O2 Sat by Pulse Oximetry 96 01/19/22 12:58 Pain Scale Pain Intensity 8 - Physical Exam General Appearance: no apparent distress Eye Exam: PERRL/EOMI Ears, Nose, Throat Exam: normal ENT inspection Neck Exam: normal inspection Extremity Exam: normal inspection, lacerations (right dorsum of thumb) SpO2: 96 Procedures - Laceration/Wound Repair Right Finger Time of Procedure: 13:15 Wound Location: Right (dorsum of thumb) Wound Length (cm): 2 Wound's Depth, Shape: flap (removed), contused tissue (contused tissue removed.) Wound Explored: clean Irrigated: Yes Hibiclens Prep: Yes - Course Nursing assessment & vital signs reviewed: Yes Ordered Tests: Active Orders 24 hr Category Date Time Status Wound Care STAT Care 01/19/22 13:10 Active Medication Summary Discontinued Medications Generic Name Dose Route Start Last Admin Trade Name Cinthia PRN Reason Stop Dose Admin Acetaminophen 1,000 mg 01/19/22 13:12 01/19/22 13:17 Acetaminophen 500 Mg Tablet PO 01/19/22 13:13 1,000 mg STAT ONE Administration Acetaminophen Confirm 01/19/22 13:15 Acetaminophen 500 Mg Tablet Administered 01/19/22 13:16 Dose 1,000 mg .ROUTE .STK-MED ONE Ceftriaxone Sodium 1,000 mg 01/19/22 13:13 01/19/22 13:17 Ceftriaxone Sodium 1000 Mg Inj Vial IM 01/19/22 13:14 1,000 mg STAT ONE Administration Ceftriaxone Sodium Confirm 01/19/22 13:16 Ceftriaxone Sodium 1000 Mg Inj Vial Administered 01/19/22 13:17 Dose 1,000 mg .ROUTE .STK-MED ONE Diphtheria/Tetanus/Acell Pertussis 0.5 ml 01/19/22 13:12 01/19/22 13:17 Tdap --Diph,Pertuss(Acell),Tet Vac/Pf 0.5 Ml Vial IM 01/19/22 13:13 0.5 ml .ONCE ONE Administration Diphtheria/Tetanus/Acell Pertussis Confirm 01/19/22 13:16 Tdap --Diph,Pertuss(Acell),Tet Vac/Pf 0.5 Ml Vial Administered 01/19/22 13:17 Dose 0.5 ml IM .STK-MED ONE Lidocaine HCl Confirm 01/19/22 13:16 Lidocaine Hcl 1% 20 Ml Mdv 20 Ml Ml Administered 01/19/22 13:17 Dose 3 ml .ROUTE .STK-MED ONE - Progress Progress: improved Progress Note: 01/19/22 13:17 Patient is informed that patient would have a wound healing which will be second degree which will heal from inside out and it will take approximately 4 to 6 weeks. 1 g Rocephin intramuscular given Adacel injection for tetanus prevention also given. Patient was given 1 g Tylenol for pain control. Counseled pt/family regarding: diagnosis, need for follow-up - Departure Departure Disposition: Home Clinical Impression: Contusion of thumb, right Qualifiers: Encounter type: initial encounter Damage to nail status: without damage Qualified Code(s): S60.011A - Contusion of right thumb without damage to nail, initial encounter Condition: Stable Critical Care Time: No Referrals: DIAMOND URIARTE [Primary Care Provider] - Follow up/PCP as directed Instructions: Wound Care (DC) Additional Instructions: Discharge/Care Plan JUSTICEANDREW BANUELOS was seen on 01/19/22 in the Emergency Room. The patient was counseled regarding Diagnosis,Lab results, Imaging studies, need for follow up and when to return to the Emergency Room. Prescriptions given: Discharge Note I have spoken with the patient and/or caregivers. I have explained the patient's condition, diagnosis and treatment plan based on the information available to me at this time. I have answered the patient's and/or caregiver's questions and addressed any concerns. The patient and/or caregivers have as good understanding of the patient's diagnosis, condition and treatment plan as can be expected at this point. The vital signs have been stable. The patient's condition is stable and appropriate for discharge from the emergency department. The patient will pursue further outpatient evaluation with the primary care physician or other designated or consulting physician as outlined in the dischar ge instructions. The patient and/or caregivers are agreeable to this plan of care and follow-up instructions have been explained in detail. The patient and/or caregivers have received these instruction. The patient/and or caregivers are aware that any significant change in condition or worsening of symptoms should prompt an immediate return to this or the closest emergency department or call 911. ANDREW RENDON was seen on 01/19/22 n the Emergency Room. At that time you were treated for an emergent condition, during your visit Laboratory, Radiology and/or other procedures may have been ordered. It is very important that you follow-up with your Primary Care Physician DIAMOND URIARTE within the next 24-48 hours to review your Emergency Room visit and the final results of testing that was ordered. Some test results such as Urine Cultures, Blood Cultures, and other cultures if ordered will not be finalized for 24-48 hours. If you do not have a Primary Care Provider please call the medical records department at [phone] to obtain a copy of your results or you may sign into our patient portal to obtain these results by visiting us @ [email or web address] and completing the following steps: 1. Click on the Patient Portal link 2. Click the Patient Self Enrollment Link to complete the enrollment form and entering your 3. Once the enrollment form is completed you will receive an email with a temporary ID and password at the email address you provided. 4. Next choose a user name and password. Your user name must be at least 4 characters long and your password must be at least 4 characters long. 5. Choose a security question from the list and provide your answer to the question. If you already have signed into the Health Portal you may access your Health Care Information 03/02 by the following steps: 1. Login to our website @ [email or web address] 2. Enter your original user name and password. FAQS The [facility] Health Portal is an online tool that contains your Lab Results, Radiology Reports, Visit History, Discharge Instructions and Health Summary Lab and Radiology Results will not be available for 72 hours on the portal. The Portal is a secure site, passwords are encryted and URLs are re-written so they cannot be copied and pasted. You and authorized family members are the only ones who can access your Portal. Also there is a timeout feature that protects your information if you leave the Portal page open. If you have technical difficulty please use the Contact Us link on the page this will allow you to submit any questions you have regarding the Portal or you may contact the Medical Record Department at [phone]. Prescriptions: Cephalexin Mh 500 mg [Keflex 500 mg] 500 mg PO Q6H #40 cap
== END 2022-01-19 13:28 | disposition home or self-care (01) ==
LOC: ED 12:57
DX: S61.011A Laceration without foreign body of right thumb without damage to nail, initial encounter (principal); S60.011A Contusion of right thumb without damage to nail, initial encounter; Z72.0 Tobacco use; Z28.310 Unvaccinated for COVID-19
CPT/HCPCS: 90471; 90715; 96372; 99283; J0696; A9270-GY